=== PATIENT | female | born 1995 | race Caucasian/White ===

== ENCOUNTER → 2020-02-17 | Outpatient (CLI) | payer OTHER ==
--- NOTE | 2020-02-17 14:52 | RAD ---
EXAM: Left knee, 3 views. HISTORY: Popping and pain. COMPARISON: None. FINDINGS: 3 views of the left knee are obtained. There is no fracture, dislocation or subluxation. There is trace joint fluid. IMPRESSION: No acute osseous finding. Trace joint fluid. Electronically signed by: Hannah Sharma MD (02/17/2020 2:49 PM) [email or web address]
== END | disposition home or self-care (01) ==
LOC: DXRAD 13:33
PROVIDERS: ATTEND Physician Assistant
DX: M25.462 Effusion, left knee (principal); M25.562 Pain in left knee
CPT/HCPCS: 73562